=== PATIENT | female | born 1930 | race Caucasian/White ===

== ENCOUNTER 2017-07-13 19:25 | Emergency (ER) | payer OTHER, MEDICARE ==
[~2017-07-13] VITALS: Ht 165.1 cm; Wt 65.8 kg
[~2017-07-13 19:25] MED LIST: ASPIRIN EC81 M1 PO; Benadryl PO; CARBIDOPA-LEVO1 EAC9 PO; CARBIDOPA/LEVOD1 TA1 PO; CYTOMEL 25 MCG25 MCG PO; CYTOMEL25 MC1 PO; DAILY MULTIPLE1 EACH PO; HYDROCHLOROTH12.5 M3 PO; KLOR-CON 1010 ME1 PO; KLOR-CON M1010 MEQ PO; LEVOTHYROXINE25 MCG PO; LOPRESSOR50 M1 PO; MAGNESIUM250 M3 PO; MIDODRINE HCL2.5 M1 PO; MULTIVITAMIN1 TAB PO; PAXIL10 M1 PO; PAXIL10 MG PO; PREDNISONE 20MG20 MG PO; PRILOSEC OTC20 M1 PO; REQUIP0.25 MG PO; TYLENOL500 MG PO; [UNRECOGNIZED DRUG - OTHER] TOP
--- NOTE | 2017-07-13 19:57 | ED CARDIAC/CP/PALPITATIONS ---
History of Present Illness General Chief Complaint: Chest Pain Stated Complaint: RAPID RESPONSE, CP Source: patient, old records Exam Limitations: no limitations Vital Signs & Intake/Output Vital Signs & Intake/Output Vital Signs Date Time Temp Pulse Resp B/P B/P Pulse O2 O2 Flow FiO2 Mean Ox Delivery Rate 07/14 0027 97.6 65 18 115/74 98 Room Air 07/13 2220 62 18 112/60 96 Room Air 07/13 1940 98.0 59 20 120/68 95 Room Air ED Intake and Output 07/14 0000 07/13 1200 Intake Total Output Total Balance Patient 145 lb Weight Allergies Coded Allergies: Penicillins (RASH 02/12/16) latex (RASH AROUND EYES 02/12/16) Reconcile Medications Aspirin (Ecotrin*) 81 MG TABLET.DR 1 TAB PO DAILY HEART/BLOOD (Reported) Carbidopa/Levodopa (Carbidopa-Levo ER 50-200 Tab) 50 MG-200 MG TABLET.ER 1 TAB PO TID PARKINSONS (Reported) Levothyroxine Sodium 25 MCG TABLET 1 TAB PO DAILY AC THYROID (Reported) Liothyronine Sodium (Cytomel) 25 MCG TABLET 1 TAB PO DAILY THYROID (Reported) Magnesium 250 MG TABLET 1 TAB PO DAILY SUPPLEMENT (Reported) Metoprolol Tartrate (Lopressor) 50 MG TABLET 1 TAB PO DAILY HEART/BP ( Reported) Midodrine HCl 2.5 MG TABLET 1 TAB PO BID LOW BP (Reported) Multivitamin (Daily Multiple Vitamin) 1 EACH TABLET 1 TAB PO DAILY SUPPLEMENT (Reported) Omeprazole Magnesium (Prilosec Otc) 20 MG TABLET.DR 1 TAB PO DAILY GI ( Reported) Paroxetine HCl (Paxil) 10 MG TABLET 1 TAB PO DAILY MENTAL HEALTH (Reported) Potassium Chloride (Klor-Con 10) 10 MEQ TABLET.ER 1 TAB PO DAILY SUPPLEMENT ( Reported) Ropinirole Hydrochloride (Requip) (Unknown Strength) TABLET (Unknown Dose) PO QPM RESTLESS LEGS (Reported) Triamterene/Hydrochlorothiazid (Triamterene-Hctz 37.5-25 MG Cp) 37.5 MG-25 MG CAPSULE 1 CAP PO DAILY BP (Reported) Triage Note: PT TO TRIAGE C/O SHARP MID CHEST PAIN THAT LASTED APPROX 5 MIN WHILE VISITING PATIENT IN HOSPITAL. PT STATES PAIN HAS SINCE GONE AWAY. DENIES SOB/NUMBNESS/TINGLING. Triage Nurses Notes Reviewed? yes Onset: Abrupt Duration: minute(s): (20), better, resolved prior to arrival Timing: recent history Quality/Severity: mild, aching, sharp Location: central Radiation: no radiation Activities at Onset: emotional stress, rest Prior Chest Pain/Card Workup: angina Nitro Today/Relief: no nitro taken today Aspirin Today: 81 mg x 1 Associated Symptoms: denies HPI: 86 year old female history of hypothyroid depression Parkinson's presents to the ER for evaluation after she developed sharp nonradiating central chest pain that lasted approximately 5 minutes while she was sitting down with her who is admitted to the hospital upstairs. On arrival to the ER she denies any complaints there is no pain. She denies any associated shortness of breath abdominal pain nausea vomiting diarrhea. She states her legs are chronically swollen and she is on a diuretic for the same. She is followed by commercial instructor supervisor Dr. Noel. There is no back jaw or arm pain. (Humberto Loomis) Past History Travel History Traveled to [place] past 21 day No Medical History Any Pertinent Medical History? see below for history Neurological: Parkinson's disease EENT: NONE Cardiovascular: ORTHOSTATIC HYPOTENSION, PACEMAKER Respiratory: NONE Gastrointestinal: NONE Hepatic: NONE Renal: NONE Musculoskeletal: spinal stenosis, BULLOUS PEMPHIGOID Psychiatric: NONE Endocrine: NONE Blood Disorders: NONE Cancer(s): NONE TALENT ACQUISITION LEAD/Reproductive: NONE History of MRSA: No History of VRE: No History of CDIFF: No Surgical History Surgical History: non-contributory Psychosocial History Who do you live with Spouse Services at Home None What is your primary language Japanese Tobacco Use: Never used Family History Family History, If Any: Relation not specified for: *No pertinent family history Hx Contributory? No (Humberto Loomis) Review of Systems Review of Systems Constitutional: Reports: see HPI. Comments Review of systems: See HPI, All other systems negative. Constitutional, no chills no fever HEENT: no sore throat no congestion Cardiovascular: chest pain Skin: no rashes, no change in skin Respiratory: No dyspnea no cough no sputum GI: No nausea no vomiting, no diarrhea : No dysuria No hematuria, no frequency Muscle skeletal: No joint pain, no back pain, no neck pain, Neurologic: , no headache Psych: No stress Heme/endocrine: No bruising Immunology: No lymphadenopathy (Humberto Loomis) Physical Exam Physical Exam General Appearance: well developed/nourished, alert, awake Cardiovascular: regular rate/rhythm Comments: Well-developed well-nourished person in no acute distress HEENT: Normal EENT exam; PERRL, EOMI. HEAD is atraumatic. moist mucous membranes. Neck: Supple, normal range of motion Back: Full range of motion Cardiovascular: Regular rate and rhythms no murmurs rub Respiratory: Chest nontender.There were no bony deformities, no asymmetry. No respiratory distress. Patient speaking in full complete sentences. Breath sounds clear to auscultation bilaterally: NO W/R/R Abdomen: Soft, nontender nondistended, no appreciable organomegaly. Normal bowel sounds. No rebound/guarding, No appreciable enlargement of the abdominal aorta, No ascites. Extremity: No edema, full range of motion of extremities Neuro: Alert oriented x3, motor sensory normal, There were no obvious focal neurologic abnormalities. Skin: No appreciable rash on exposed skin, skin is warm and dry. Psych: Mood and affect is normal, memory and judgment is normal. Core Measures ACS in differential dx? Yes CVA/TIA Diagnosis No Sepsis Present: No Sepsis Focused Exam Completed? No (Jimy SELF,Humberto) Progress Differential Diagnosis: AMI, atrial fibrillation, cholecystitis, CHF/pulm edema, costochondritis, myocarditis, pancreatitis, pericarditis, pneumonia, pulmonary embolism, respiratory failure, unstable angina Plan of Care: Orders Procedure Date/time Status TROPONIN LEVEL 07/13 2299 Complete EKG 07/13 2299 Active TROPONIN LEVEL 07/13 1936 Complete COMPREHENSIVE METABOLIC PANEL 07/13 1936 Complete CBC WITHOUT DIFFERENTIAL 07/13 1936 Complete EKG 07/13 1926 Active Laboratory Tests 07/13/17 2251: Troponin I < 0.01 07/13/17 2000: Anion Gap 11, Estimated GFR 59 L, BUN/Creatinine Ratio 41.1 H, Glucose 105 H, Calcium 9.3, Total Bilirubin 0.5, AST 9 L, ALT 15, Alkaline Phosphatase 91, Troponin I < 0.01, Total Protein 7.0, Albumin 3.9, Globulin 3.1, Albumin/ Globulin Ratio 1.3, CBC w Diff NO MAN DIFF REQ, RBC 4.78, MCV 83.8, MCH 27.6, MCHC 32.9 L, RDW 14.1, MPV 8.6, Gran % 55.9, Lymphocytes % 33.5, Monocytes % 7.7, Eosinophils % 2.7, Basophils % 0.2, Absolute Granulocytes 4.4, Absolute Lymphocytes 2.6, Absolute Monocytes 0.6, Absolute Eosinophils 0.2, Absolute Basophils 0 Patient denies any complaints at this time labs x-ray ordered discussed with them plan of care and need for repeat troponin and EKG at 11:00 2049- pt resting in nad, denies sx, resting in nad, nsr on the monitor. d/w all of her labs to date, pending repeat trop 2200 Pt resting in nadat this time, denies pain 2230 patient remains in no acute distress at this time pending repeat troponin 2350 I discussed with the patient and her family her results she'll follow up with cardiology on Saturday return precautions were discussed at length she feels comfortable with plan Diagnostic Imaging: Viewed by Me: Radiology Read. Discussed w/RAD: Radiology Read. Radiology Impression: PATIENT: CHALINO MERRITT PRESENT AGE: 86 PATIENT ACCOUNT NO: [id number] : 30 LOCATION: [facility] ORDERING PHYSICIAN: Humberto SELF SERVICE DATE: 07/13/17 EXAM TYPE: RAD - XRY- PORTABLE CHEST XRAY EXAMINATION: XR PORTABLE CHEST CLINICAL INFORMATION: Chest pain. COMPARISON: Chest x-ray 06/12/2014 TECHNIQUE: Portable frontal view of the chest was obtained. 814 p.m. FINDINGS: Pacemaker lead in right atrium and right ventricle. Heart size normal. There are vascular wall calcifications of aorta. There is no acute abnormality of the chest. Lungs are clear. There is no pulmonary vascular congestion. No pleural effusion or pneumothorax. IMPRESSION: No acute abnormality the chest. DICTATED BY: Louis Long MD DATE/TIME DICTATED: 07/13/172051 ANALYTICAL DATA SCIENTIST:NATHANAEL DATE/TIME TRANSCRIBED:07/13/172051 CONFIDENTIAL, DO NOT COPY WITHOUT APPROPRIATE AUTHORIZATION. <Electronically signed in Other Vendor System> SIGNED BY: Louis Long MD 07/13/172056 Initial ED EKG: normal intervals, normal p-waves, normal QRS complex, normal sinus rhythm Prior EKG: unchanged (01/2016) Repeat EKG: unchanged Rhythm Strip: normal sinus rhythm (Jimy SELF,Humberto) Departure Departure Disposition: HOME OR SELF CARE Condition: Stable Clinical Impression Primary Impression: Chest pain Referrals: Sadie URIBE,Mike Soto MD,Marty Knowles (PCP/Family) Additional Instructions: Follow-up with your primary care physician and commercial instructor supervisor Dr. Noel on Saturday. Return to the ER with any concerns. Departure Forms: Customer Survey General Discharge Information (Humberto Loomis) PA/EVP Co-Sign Statement Statement: ED Attending supervision documentation- x I saw and evaluated the patient. I have also reviewed all the pertinent lab results and diagnostic results. I agree with the findings and the plan of care as documented in the PA's/EVP's documentation. [] I have reviewed the ED Record and agree with the PA's/EVP's documentation. [] Additions or exceptions (if any) to the PAs/EVP's note and plan are summarized below: [] (Bran URIBE,Olvin) Critical Care Note Critical Care Note Critical Care Time: non-applicable (Humberto Loomis)
[2017-07-13 20:12] LABS: ABSOLUTE BASOPHIL COUNT 0 /CUMM (0.0-0.2); ABSOLUTE EOSINOPHIL COUNT 0.2 /CUMM (0.0-0.7); ABSOLUTE GRANULOCYTE CT 4.4 /CUMM (1.4-6.5); ABSOLUTE LYMPH COUNT 2.6 /CUMM (1.2-3.4); ABSOLUTE MONOCYTE COUNT 0.6 /CUMM (0.10-0.60); BASOPHIL % 0.2 % (0.0-2.0); EOSINOPHIL % 2.7 % (0-5); GRANULOCYTE % 55.9 % (42.2-75.2); MEAN CORPUSCULAR HGB 27.6 PG (27.0-31.0); MEAN CORPUSCULAR HGB CONC 32.9 G/DL (33.0-37.0); MEAN CORPUSCULAR VOLUME 83.8 FL (81.0-99.0); MEAN PLATELET VOLUME 8.6 FL (7.4-10.4); PLATELET COUNT 207 /CUMM (130-400); RBC DISTRIBUTION WIDTH 14.1 % (11.5-14.5); RED BLOOD CELL CT 4.78 /CUMM (4.20-5.40); WHITE BLOOD CELL COUNT 7.9 /CUMM (4.8-10.8)
[2017-07-13] MEDS ORDERED: TRIAMTERENE-HC1 EAC3 PO (20:35)
--- NOTE | 2017-07-13 20:57 | RADIOLOGY REPORT ---
EXAMINATION: XR PORTABLE CHEST CLINICAL INFORMATION: Chest pain. COMPARISON: Chest x-ray 06/12/2014 TECHNIQUE: Portable frontal view of the chest was obtained. 814 p.m. FINDINGS: Pacemaker lead in right atrium and right ventricle. Heart size normal. There are vascular wall calcifications of aorta. There is no acute abnormality of the chest. Lungs are clear. There is no pulmonary vascular congestion. No pleural effusion or pneumothorax. IMPRESSION: No acute abnormality the chest.
[2017-07-14 00:27] VITALS: BP 115/74
== END 2017-07-14 00:28 ==
LOC: ERH 19:25
PROVIDERS: Physician Assistant Medical
DX: R07.89 Other chest pain (principal)
CPT/HCPCS: 71045; 93005; 93010

== ENCOUNTER 2017-10-15 04:16 | Emergency (ER) | payer OTHER, MEDICARE ==
[~2017-10-15] VITALS: Ht 165.1 cm; Wt 65.8 kg
[~2017-10-15 04:16] MED LIST changes: +KEFLEX500 M1 PO; +TRIAMTERENE-HC1 EAC3 PO
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
--- NOTE | 2017-10-15 05:45 | RADIOLOGY REPORT ---
EXAMINATION: XR SHOULDER, RIGHT CLINICAL INFORMATION: Fall COMPARISON: None TECHNIQUE: Three views of the right shoulder. FINDINGS: Glenohumeral alignment is anatomic. No acute fracture is seen. The acromioclavicular joint is intact with mild degenerative change. Right-sided pacemaker is partially visualized. IMPRESSION: No acute findings identified.
--- NOTE | 2017-10-15 05:55 | CT SCAN REPORT ---
EXAMINATION: NONCONTRAST HEAD CT NONCONTRAST MAXILLOFACIAL CT NONCONTRAST CERVICAL SPINE CT INDICATION INFORMATION: Fall, head injury, pain COMPARISON: 09/23/2017 TECHNIQUE: Separate noncontrast CT examinations of the head, maxillofacial bones, and cervical spine were performed. Coronal and sagittal images were created for each examination at the technologist workstation. DLP: 1792.86 mGy-cm FINDINGS: Head: There is no evidence of acute intracranial hemorrhage or territorial infarction. No abnormal mass-effect or midline shift is seen. Valentine to white matter differentiation is well preserved. No extra-axial fluid collections are identified. The ventricles are normal in size. Mild volume loss is noted. The osseous structures and soft tissues are normal. The mastoid air cells are well aerated. Maxillofacial: No acute maxillofacial fractures are seen. There is mild mucosal thickening in the bilateral ethmoid air cells. Remaining paranasal sinuses are well-aerated. There is opacification of the left middle and inferior meati. There is rightward deviation of the nasal septum. The mandibular condyles are well-seated in the condylar fossa. The orbits demonstrate a normal appearance bilaterally. The globes are intact, and there are no suspicious findings to suggest retrobulbar hemorrhage. Cervical spine: There is grade 1 anterolisthesis of C4 on C5, favored to be chronic/degenerative in nature. Vertebral body heights are maintained. There is disc space narrowing at C5-C6 and C6-C7 with associated endplate osteophyte formation. Multilevel facet arthropathy is present. No evidence of acute fracture. No prevertebral soft tissue swelling. Visualized portions of the lung apices demonstrate mild interlobular septal thickening, which could reflect mild interstitial edema. The thyroid gland is diffusely enlarged. IMPRESSION: 1. No acute traumatic findings identified in the head, maxillofacial bones, or cervical spine. 2. Degenerative changes of the cervical spine. 3. Enlarged thyroid gland. 4. Possible mild interstitial edema at the lung apices.
[2017-10-15 06:18] VITALS: BP 142/63
== END 2017-10-15 06:56 ==
LOC: ERH 04:16
DX: S09.90XA Unspecified injury of head, initial encounter (principal); W19.XXXA Unspecified fall, initial encounter; Y92.9 Unspecified place or not applicable; Y93.89 Activity, other specified
CPT/HCPCS: 73030-RT; J0131